=== PATIENT | female | born 1990 | race Caucasian/White ===

== ENCOUNTER 2019-06-07 05:06 | Inpatient (IN) | payer SELFPAY ==
[~2019-06-07] VITALS: Ht 160 cm; Wt 78.0 kg
[~2019-06-07 05:06] MED LIST: ACET325 PO; ACET500 PO; AMOX500 PO; CEPH500 PO; CIPR500 PO; CITA20 PO; HYDR1TAB94 PO; IBUP200 PO; IBUP800 PO; ONDA4 PO; ONDA8ODT MM; ORACON PO; OSEL75CA PO; PHENA200 PO; PRENZ PO; PROM25 PO; SUMA25 PO; Zithromax250 MG PO
[2019-06-07 05:49] LABS: BASOPHILS ABSOLUTE AUTO 0.05 K/mm3 (0.00-0.23); BASOPHILS PERCENT AUTO 1 % (0-2); EOSINOPHILS PERCENT AUTO 3 % (0-6); Hematocrit 33.7 % (33.0-51.0); Hemoglobin 11.3 g/dL (11.5-16.0); IMMATURE GRAN PERCENT AUTO 2 % (0-1); LYMPHOCYTES ABSOLUTE AUTO 2.04 K/mm3 (0.84-5.20); LYMPHOCYTES PERCENT AUTO 21 % (21-46); MONOCYTES ABSOLUTE AUTO 0.46 K/mm3 (0.16-1.47); MONOCYTES PERCENT AUTO 5 % (4-13); Mean Corpuscular HGB 29.4 pg (26.0-34.0); Mean Corpuscular HGB Conc 33.5 g/dL (31.5-36.5); Mean Corpuscular Volume 88 fL (80-100); NEUTROPHILS ABSOLUTE AUTO 6.83 K/mm3 (1.96-9.15); NEUTROPHILS PERCENT AUTO 69 % (41-73); Platelet Count 189 K/mm3 (150-400); RDW Coefficient Variation 14.2 % (11.7-14.2); RDW Standard Deviation 44.9 fL (35.1-46.3); Red Blood Cell Count 3.84 M/mm3 (3.80-5.20); White Blood Cell Count 9.88 K/mm3 (4.00-11.30)
[2019-06-07] MEDS ORDERED: UNISOM25 MG PO (06:18)
[2019-06-07] MEDS ORDERED: Humulin N100 UNIT/1 SC (07:12)
--- NOTE | 2019-06-07 17:00 | NUR ---
FIRST VOID 1700
[2019-06-08 05:44] LABS: BASOPHILS ABSOLUTE AUTO 0.08 K/mm3 (0.00-0.23); BASOPHILS PERCENT AUTO 1 % (0-2); EOSINOPHILS ABSOLUTE AUTO 0.31 K/mm3 (0.00-0.68); EOSINOPHILS PERCENT AUTO 3 % (0-6); Hematocrit 31.6 % (33.0-51.0); Hemoglobin 10.6 g/dL (11.5-16.0); IMMATURE GRAN ABSOLUTE AUTO 0.15 K/mm3 (0.00-0.10); IMMATURE GRAN PERCENT AUTO 1 % (0-1); LYMPHOCYTES ABSOLUTE AUTO 2.24 K/mm3 (0.84-5.20); LYMPHOCYTES PERCENT AUTO 21 % (21-46); MONOCYTES ABSOLUTE AUTO 0.56 K/mm3 (0.16-1.47); MONOCYTES PERCENT AUTO 5 % (4-13); Mean Corpuscular HGB 29.5 pg (26.0-34.0); Mean Corpuscular HGB Conc 33.5 g/dL (31.5-36.5); Mean Corpuscular Volume 88 fL (80-100); Mean Platelet Volume 11.1 fL (9.1-12.4); NEUTROPHILS ABSOLUTE AUTO 7.51 K/mm3 (1.96-9.15); NEUTROPHILS PERCENT AUTO 69 % (41-73); Platelet Count 168 K/mm3 (150-400); RDW Coefficient Variation 14.2 % (11.7-14.2); RDW Standard Deviation 45.5 fL (35.1-46.3); Red Blood Cell Count 3.59 M/mm3 (3.80-5.20); White Blood Cell Count 10.85 K/mm3 (4.00-11.30)
--- NOTE | 2019-06-08 07:25 | NUR ---
Pt sleeping, woke when RN entered room with breakfast tray. Reported she will call when she is awake for vital signs and assessment.
[2019-06-08] MEDS ORDERED: IBUP800 PO (10:40)
--- NOTE | 2019-06-08 11:11 | NUR ---
Pt visiting w/family. Denies needs at this time. Will give prn motrin soon.
--- NOTE | 2019-06-08 15:50 | NUR ---
Printed d/c instructions reviewed w/pt. Verbalized understanding. Denies questions.
== END 2019-06-08 17:10 | disposition home or self-care (01) | DRG 807 ==
LOC: BC 05:06
PROVIDERS: ADMIT Nurse Practitioner Obstetrics & Gynecology
PROC: 10E0XZZ Delivery of Products of Conception, External Approach (ICD-10-PCS; principal; 2019-06-07)
PROC: 10907ZC Drainage of Amniotic Fluid, Therapeutic from Products of Conception, Via Natural or Artificial Opening (ICD-10-PCS; 2019-06-07)
PROC: 3E033VJ Introduction of Other Hormone into Peripheral Vein, Percutaneous Approach (ICD-10-PCS; 2019-06-07)
PROC: 3E0R3BZ Introduction of Anesthetic Agent into Spinal Canal, Percutaneous Approach (ICD-10-PCS; 2019-06-07)
DX: O24.424 Gestational diabetes mellitus in childbirth, insulin controlled (principal); Z37.0 Single live birth; Z3A.39 39 weeks gestation of pregnancy
CPT/HCPCS: 36415; 51702; 82947; 85025; 86900; 86901; J1885; J2210; J2590; J3010; J7060; J7120

== ENCOUNTER 2019-07-30 18:25 | Emergency (ER) | payer SELFPAY ==
[~2019-07-30] VITALS: Ht 160 cm; Wt 67.1 kg
[~2019-07-30 18:25] MED LIST changes: +Humulin N100 UNIT/1 SC; +UNISOM25 MG PO
[2019-07-30 19:34] LABS: Source, Urine Clean Catch
[2019-07-30 19:43] LABS: Appearance, Urine Clear (Clear); Bilirubin, Urine Neg (Neg); Blood, Urine Neg (Neg); Color, Urine Yellow (P-Yellow); Glucose Qualitative, Urine Neg (Neg); Ketones, Urine 3+ (Neg); Leukocyte Esterase, Urine 2+ (Neg); Nitrite, Urine Neg (Neg); Protein, Urine 1+ (Neg); Urobilinogen, Urine 1+ (Normal)
[2019-07-30 19:54] LABS: Red Blood Cells, Urine 0-2 /hpf (0-2); Squamous Epithelial Cells Mod /hpf (Few)
[2019-07-30 19:55] LABS: Bacteria Many /hpf
[2019-07-30 19:59] LABS: BASOPHILS ABSOLUTE AUTO 0.08 K/mm3 (0.00-0.23); BASOPHILS PERCENT AUTO 1 % (0-2); EOSINOPHILS ABSOLUTE AUTO 0.27 K/mm3 (0.00-0.68); EOSINOPHILS PERCENT AUTO 2 % (0-6); Hematocrit 46.2 % (33.0-51.0); Hemoglobin 15.3 g/dL (11.5-16.0); IMMATURE GRAN ABSOLUTE AUTO 0.07 K/mm3 (0.00-0.10); IMMATURE GRAN PERCENT AUTO 1 % (0-1); LYMPHOCYTES PERCENT AUTO 15 % (21-46); MONOCYTES ABSOLUTE AUTO 0.69 K/mm3 (0.16-1.47); MONOCYTES PERCENT AUTO 5 % (4-13); Mean Corpuscular HGB 28.5 pg (26.0-34.0); Mean Corpuscular HGB Conc 33.1 g/dL (31.5-36.5); Mean Corpuscular Volume 86 fL (80-100); Mean Platelet Volume 10.6 fL (9.1-12.4); NEUTROPHILS ABSOLUTE AUTO 9.93 K/mm3 (1.96-9.15); NEUTROPHILS PERCENT AUTO 77 % (41-73); Platelet Count 245 K/mm3 (150-400); RDW Coefficient Variation 12.9 % (11.7-14.2); RDW Standard Deviation 40.1 fL (35.1-46.3); Red Blood Cell Count 5.37 M/mm3 (3.80-5.20); White Blood Cell Count 12.94 K/mm3 (4.00-11.30)
[2019-07-30 20:54] LABS: Alanine Aminotransfer (ALT/SGP 55 U/L (12-78); Albumin, Blood 4.3 g/dL (3.4-5.0); Alk Phos 115 U/L (50-136); Anion Gap 9 mmol/L (6-16); Aspartate Aminotrans (AST/SGOT 62 U/L (12-37); Bilirubin, Total 1.4 mg/dL (0.1-1.0); Blood Urea Nitrogen 15 mg/dL (8-24); CO2, Blood 25 mmol/L (21-32); Calcium, Blood 9.1 mg/dL (8.5-10.1); Chloride, Blood 106 mmol/L (98-108); Creatinine, Blood 0.75 mg/dL (0.40-1.00); Globulin, Blood 4.2 g/dL (2.2-4.0); Glomerular Filtration Rate >60 (60-); Glucose, Blood 97 mg/dL (70-99); Potassium, Blood 3.9 mmol/L (3.5-5.5); Sodium, Blood 140 mmol/L (136-145); Total Protein, Blood 8.5 g/dL (6.4-8.2)
[2019-07-30] MEDS ORDERED: Pepcid20 MG PO (22:00)
== END 2019-07-30 22:28 | disposition home or self-care (01) ==
LOC: ER 18:25
PROVIDERS: Nurse Practitioner
DX: R10.13 Epigastric pain (principal); R10.11 Right upper quadrant pain
CPT/HCPCS: 36415; 80053; 81001; 81025; 83690; 85025; 87086; 87147; 96374; 96375; 99284-25; A9270; A9270-GY; J1170; J2405

== ENCOUNTER 2019-08-09 16:10 | Observation (INO) | payer SELFPAY ==
[~2019-08-09] VITALS: Ht 160 cm; Wt 68.0 kg
[~2019-08-09 16:10] MED LIST changes: +Pepcid20 MG PO
[2019-08-09 18:14] LABS: BASOPHILS ABSOLUTE AUTO 0.06 K/mm3 (0.00-0.23); BASOPHILS PERCENT AUTO 1 % (0-2); EOSINOPHILS ABSOLUTE AUTO 0.23 K/mm3 (0.00-0.68); EOSINOPHILS PERCENT AUTO 2 % (0-6); Hematocrit 43.3 % (33.0-51.0); Hemoglobin 14.2 g/dL (11.5-16.0); IMMATURE GRAN ABSOLUTE AUTO 0.05 K/mm3 (0.00-0.10); IMMATURE GRAN PERCENT AUTO 0 % (0-1); LYMPHOCYTES ABSOLUTE AUTO 1.78 K/mm3 (0.84-5.20); LYMPHOCYTES PERCENT AUTO 16 % (21-46); MONOCYTES ABSOLUTE AUTO 0.57 K/mm3 (0.16-1.47); MONOCYTES PERCENT AUTO 5 % (4-13); Mean Corpuscular HGB 28.4 pg (26.0-34.0); Mean Corpuscular HGB Conc 32.8 g/dL (31.5-36.5); Mean Corpuscular Volume 87 fL (80-100); Mean Platelet Volume 10.4 fL (9.1-12.4); NEUTROPHILS ABSOLUTE AUTO 8.49 K/mm3 (1.96-9.15); NEUTROPHILS PERCENT AUTO 76 % (41-73); Platelet Count 244 K/mm3 (150-400); RDW Coefficient Variation 13.4 % (11.7-14.2); RDW Standard Deviation 42.3 fL (35.1-46.3); Source, Urine Clean Catch; White Blood Cell Count 11.18 K/mm3 (4.00-11.30)
[2019-08-09 18:20] LABS: Bilirubin, Urine Neg (Neg); Blood, Urine 4+ (Neg); Glucose Qualitative, Urine Neg (Neg); Ketones, Urine 1+ (Neg); Leukocyte Esterase, Urine 3+ (Neg); Nitrite, Urine Neg (Neg); Protein, Urine Neg (Neg); Urobilinogen, Urine NORM (Normal)
[2019-08-09 18:22] LABS: Appearance, Urine Clear (Clear); Color, Urine Yellow (P-Yellow)
[2019-08-09 18:29] LABS: Bacteria Mod /hpf; Squamous Epithelial Cells Mod /hpf (Few)
[2019-08-09 18:33] LABS: Alanine Aminotransfer (ALT/SGP 93 U/L (12-78); Albumin, Blood 4.3 g/dL (3.4-5.0); Albumin/Globulin Ratio 1.1 (0.8-1.8); Alk Phos 134 U/L (50-136); Anion Gap 5 mmol/L (6-16); Aspartate Aminotrans (AST/SGOT 123 U/L (12-37); Bilirubin, Total 0.6 mg/dL (0.1-1.0); Blood Urea Nitrogen 16 mg/dL (8-24); Bun/Creatinine Ratio 21.8 (12.0-20.0); CO2, Blood 27 mmol/L (21-32); Calcium, Blood 9.5 mg/dL (8.5-10.1); Chloride, Blood 107 mmol/L (98-108); Creatinine, Blood 0.73 mg/dL (0.40-1.00); Globulin, Blood 3.8 g/dL (2.2-4.0); Glomerular Filtration Rate >60 (60-); Glucose, Blood 109 mg/dL (70-99); Potassium, Blood 3.6 mmol/L (3.5-5.5); Sodium, Blood 139 mmol/L (136-145); Total Protein, Blood 8.1 g/dL (6.4-8.2)
--- NOTE | 2019-08-10 05:08 | NUR ---
SUMMARY PT ADMITTED TONIGHT WITH DX REYNA.PT ALERT,AMBULATORY. VOIDS WITHOUT DIFF. NPO.PT HAS DENIED NEED FOR PAINOR NAUSEA MEDS SINCE ARRIVAL TO ROOM. PT HAS HAD INTERMITTENT ITCHING SINCE ARRIVAL. DENIES NEED FOR BENADRYL REQUEST.
--- NOTE | 2019-08-10 09:10 | NUR ---
PT TO OR AT ABOUT [id number]
--- NOTE | 2019-08-10 10:54 | NUR ---
PT BACK IN ROOM CURRENTLY, SURGERY DELAYED AT THIS TIME
--- NOTE | 2019-08-10 12:05 | NUR ---
ASSUMED CARE OF PT.
--- NOTE | 2019-08-10 14:47 | NUR ---
08/10/19 1447 Susanne Moreira ALL COUNTS CORRECT.
--- NOTE | 2019-08-10 16:45 | NUR ---
POST OP: REPORT RECEIVED FROM REED MAKER. PT BACK TO ROOM AT ABOUT 1513. PT VSS, A/O, SURGICAL SITES WNL. PT REPORTS MINIMAL PAIN, NO NAUSEA. ABLE TO WALK TO BATHROOM AND VOID. WILL ADVANCE DIET ESPINOZA AND CTM.
[2019-08-10] MEDS ORDERED: ACET325 PO (17:53)
[2019-08-10] MEDS ORDERED: KEFLEX500 MG PO (17:54)
[2019-08-10] MEDS ORDERED: HYDROCODONE-AC1 EAC1 PO (17:55)
--- NOTE | 2019-08-10 18:53 | NUR ---
DISCHARGE: PT DOING WELL POST OP. PAIN MANAGED, PT ABLE TO TAKE IN PO TOLERATED YOGURT AND CRACKERS. SURGICAL SITES WNL. PT HAS VOIDED. PACKET PRINTED AND PT EDUCATED. PT VERBALIZED UNDERSTANDING. MEDS FAXED TO [facility] ON [address]. AWAITING RIDE HOME AT THIS TIME, PLAN TO LEAVE SOON.
== END 2019-08-10 19:01 | disposition home or self-care (01) ==
LOC: ER 16:10 → SURS 16:11 → ER 20:36 → SURS 20:40
PROVIDERS: Physician Assistant; Surgery; ADMIT Surgery
PROC: BF13YZZ Fluoroscopy of Gallbladder and Bile Ducts using Other Contrast (ICD-10-PCS; principal; 2019-08-10 12:15)
PROC: 0FT44ZZ Resection of Gallbladder, Percutaneous Endoscopic Approach (ICD-10-PCS; principal; 2019-08-10 12:15)
DX: K80.12 Calculus of gallbladder with acute and chronic cholecystitis without obstruction (principal)
CPT/HCPCS: 36415; 74300; 76705; 80053; 81001; 81025; 83690; 85025; 87086; 96361; 96365; 96375; 99285-25; J0690; J0694; J1100; J1170; J1885; J2250; J2405; J2704; J2710; J3010; J7030; J7120

== ENCOUNTER → 2024-03-17 | Outpatient (CLI) | payer SELFPAY ==
[~2024-03-17] MED LIST changes: +HYDROCODONE-AC1 EAC1 PO; +KEFLEX500 MG PO
== END ==
LOC: LAB 19:09 → LAB SHORT 19:09
DX: R30.0 Dysuria (principal); R35.0 Frequency of micturition
CPT/HCPCS: 87077; 87086; 87186